=== PATIENT | female | born 1965 | race Caucasian/White ===

== ENCOUNTER 2016-10-02 18:57 | Emergency (ER) | payer OTHER ==
--- NOTE | 2016-10-02 22:33 | DIAGNOSTIC IMAGING REPORT ---
PROCEDURE: CT HEAD WITHOUT CONTRAST INDICATION: Fall 3 weeks ago with continued headache, initial encounter TECHNIQUE: Noncontrast axial images with sagittal and coronal reformations. COMPARISON: None. FINDINGS: Sulci, ventricular system, and brain parenchyma are normal. No evidence of acute intracranial process. Visualized mastoids and sinuses are clear. IMPRESSION: 1. Negative non-enhanced head CT. 2. Findings called to the ER at 10:32 p.m., [place] Standard Time
--- NOTE | 2016-10-02 23:41 | ED CLINICAL REPORT ---
Clinical Report - Physicians/Mid Levels [facility] [address] [address] 10/02/2016 19:00 Patient: HUDSON LYNCH Time Seen: 21:21. Arrived- By private vehicle. Historian- patient. HISTORY OF PRESENT ILLNESS Is still present. Chief Complaint: HEADACHE. This started about 3 weeks ago. Onset during Pt fell off a stool onto hardwood floor 3 wks ago. She did not lose consciousness, but felt dazed, and states she's had a headache and felt "off" since. Pt feels that the past couple of days are worse, and thinks she may be "coming down with a bug.". It is described as "pain" and pressure. Located in the frontal and occipital region and has had right posterior and lateral neck pain. At its maximum, severity described as moderate. When seen in the E.D., severity described as moderate. Modifying factors: worsened by stooping, straining and tension; relieved by nothing. No preceding symptoms, blurred vision, photophobia, associated nausea or numbness. No weakness or vomiting. Similar symptoms previously: None. Recent medical care: Not recently seen/assessed. REVIEW OF SYSTEMS No fever, muscle aches, sinus pressure, ear pain or sore throat. No chest pain, difficulty breathing, cough, abdominal pain or diarrhea. No pain with urination, skin rash, enlarged lymph nodes or back pain. The patient sustained a head injury (3 weeks ago). All systems otherwise negative, except as recorded above. PAST HISTORY Problems: Cervical Radiculopathy. De Quervain's Disease. Endometriosis. Dental Caries. Immunizations. LNMP - Last Normal Menstrual Period. Additional Surgeries: . Medications: Gabapentin Oral 300 mg, 3x a day. Ibuprofen Oral 800 mg, 3x a day. Allergies: Amoxicillin. Penicillins. SOCIAL HISTORY Smoker- current status unknown. History of drug use: marijuana. No alcohol use. ADDITIONAL NOTES The nursing notes have been reviewed. PHYSICAL EXAM Vital Signs: 10/02/2016 20:24 BP: 144/80. HR: 71. RR: 20. O2 saturation: 100%. Have been reviewed. Appearance: Alert. No acute distress. (Pt appears mildly uncomfortable.). Eyes: Pupils equal, round and reactive to light. Eyes normal inspection. ENT: Nose normal. Neck: Neck supple. ( PT has tenderness over the R trapezius distribution.). CVS: Normal heart rate and rhythm. Heart sounds normal. Pulses normal. Respiratory: No respiratory distress. Breath sounds normal. Abdomen: Soft and nontender. Back: Normal inspection. No CVA tenderness. Skin: Skin warm and dry. Normal skin color. No rash. Normal skin turgor. Extremities: Extremities exhibit normal ROM. Neuro: Oriented X 3. Alert. Mood/affect normal. Speech normal. Cranial nerves normal (as tested). No cerebellar findings. No motor deficit. No sensory deficit. LABS, X-RAYS, AND EKG CT Head: Normal study. No acute changes. No bony abnormalities, no hemorrhage, no intracranial mass, no midline shift and no hydrocephalus. No atrophy. Head CT performed without contrast. The study was independently viewed by me, interpreted by the radiologist and contemporaneously by me and discussed with the radiologist. Prior studies were not available for comparison. Laboratory Tests: UA-Culture if indicated: (LISANDRA: 10/02/2016 22:37) ( MsgRcvd 10/02/2016 22:50) Final results Test Result Flag Units (Reference) URINE COLOR YELLOW URINE APPEARANCE CLEAR URINE GLUCOSE NEGATIVE (NEGATIVE) URINE BILIRUBIN NEGATIVE (NEGATIVE) URINE KETONE NEGATIVE (NEGATIVE) URINE SPECIFIC GRAVITY <= 1.005 L (1.010-1.030) URINE PH 6.0 (5.0-8.0) URINE PROTEIN NEGATIVE (NEGATIVE) URINE UROBILINOGEN 0.2 EU/dL (0.2-1.0) URINE NITRITE NEGATIVE (NEGATIVE) URINE BLOOD NEGATIVE (NEGATIVE) URINE LEUK ESTERASE NEGATIVE (NEGATIVE) URINE RBC 0-1 rbc/hpf (0-1) URINE WBC 0-1 wbc/hpf (0-1) URINE EPITHELIAL CELLS 0-1 EPI/hpf (0-5) URINE BACTERIA NONE SEEN (NONE SEEN) URINE COMMENT CULT NOT INDICATED URINE CULTURES ARE SET-UP BASED ON THE FOLLOWING CRITERIA:POSITIVE NITRITEPOSITIVE LEUKOCYTE ESTERASEGREATER THAN 10 WHITE BLOOD CELLSMODERATE (2+) OR GREATER BACTERIA CBC w Diff: (LISANDRA: 10/02/2016 22:37) ( MsgRcvd 10/02/2016 22:47) Final results Test Result Flag Units (Reference) WHITE BLOOD COUNT 8.1 K/uL (4.5-11.5) RED BLOOD COUNT 4.58 M/uL (4.00-5.20) HEMOGLOBIN 13.8 gm/dL (12.0-16.0) HEMATOCRIT 42.5 % (36.0-46.0) MEAN CELL VOLUME 93 fL (80-100) MEAN CORPUSCULAR HGB 30 pg (26-34) MEAN CORPUSCULAR HGB CONC 33 g/dL (31-37) RED CELL DISTRIBUTION WIDTH 13.0 % (11.6-14.8) PLATELET COUNT 236 K/uL (150-400) LYMPH % 42.9 H % (25-40) MONO % 7.4 % (3-14) GRANULOCYTE % 49.7 L (53-90) CMP: (LISANDRA: 10/02/2016 22:37) ( MsgRcvd 10/02/2016 23:02) Final results Test Result Flag Units (Reference) GLUCOSE 102 mg/dL (70-110) BUN 15 mg/dL (7-18) CREATININE 0.7 mg/dL (0.6-1.3) Estimated GFR >60 mL/min Estimated GFR- >60 mL/min Note: Persistent reduction over 3 months in eGFR<60 mL/min/1.73 m2 defines CKD. Patients with eGFR values>=60 mL/min/1.73 m2 may also have CKD if evidence ofpersistent proteinuria. Additional information may be foundat www.[email or web address].org. SODIUM 140 mmol/L (136-145) POTASSIUM 3.8 mmol/L (3.5-5.1) CHLORIDE 105 mmol/L (98-107) CARBON DIOXIDE 29 mmol/L (21-32) CALCIUM 8.7 mg/dL (8.5-10.1) TOTAL PROTEIN 6.8 g/dL (6.4-8.2) ALBUMIN 3.8 g/dL (3.3-5.0) BILIRUBIN, TOTAL 0.3 mg/dL (0.0-1.0) ALKALINE PHOSPHATASE 49 U/L (46-116) AST (SGOT) 21 U/L (15-37) ALT (SGPT) 26 U/L (12-78) . Pulse Oximetry: 10/02/2016 20:24 O2 saturation: 100%. (FIO2 - room air). Interpretation: normal. PROGRESS AND PROCEDURES Course of Care: PT was worked up for her sx, and treated symptomatically with IV Toradol, with improvement. Work-up revealed no emergent cause of sx. We have discussed the possibility of post-concussive syndrome, vs the possibility that pt is in the early stage of illness with one of the many viruses that are going around right now. I have encouraged her to f/u with her PCP for further concerns. Patient and family counseled in person regarding the patient's stable condition, test results, diagnosis and need for follow-up. Concerns were addressed. Old medical records reviewed. Disposition: Discharged. Condition: stable. CLINICAL IMPRESSION Concussion. No loss of consciousness. Possible acute viral syndrome INSTRUCTIONS (Your head CT was negative. Your labs and urinalysis look good. You likely sustained a concussion at the time of your head injury, which can cause symptoms for up to some weeks after the injury. On top of this, you may be fighting off one of the many viruses which are going around at this time.). Warnings: SEDATIVE MEDICATION: You were given sedative medication during your visit. Do not drive or operate dangerous machinery for 6 hours. GENERAL WARNINGS: Return or contact your physician immediately if your condition worsens or changes unexpectedly, if not improving as expected, or if other problems arise. Your Current Medications: CONTINUE TAKING THE FOLLOWING MEDICATIONS: Gabapentin Oral : 300 mg 3x a day. Ibuprofen Oral : 800 mg 3x a day. Prescription Medications: Hydrocodone/APAP take 1 orally every 8 hours as needed for pain. Dispense five (5). No refill. Zofran (orally disintegrating tablets) 4 mg: take 1-2 orally every 6 hours as needed for nausea. Dispense ten (10). No refill. Substitution is permissible. Follow-up: Follow up with your doctor in seven days as needed. Understanding of the discharge instructions verbalized by patient. (Electronically signed by Karen Kaba MD 10/07/2016 21:08)
--- NOTE | 2016-10-02 23:41 | ED ORDER SUMMARY ---
..... Patient: HUDSON LYNCH OrderSheet [facility] VisitID: [id number] [place] [address] 51y, F Registration Date/Time: 10/02/2016 ORDER SHEET Weight: 56.6 kg (stated) Allergies: Amoxicillin, Penicillins GENERAL ORDERS: CT Head wo Cont Urgent (22:15 10/02/2016 Edgar WARNER) (Ack 22:20 CHagerty ER French Pastry Cook) (22:29 CHagerty ER French Pastry Cook) CBC w Diff Urgent (22:17 10/02/2016 Edgar WARNER) (Ack 22:20 CHagerty ER French Pastry Cook) (22:39 JQuivey R.N.) CMP Urgent (22:17 10/02/2016 Edgar WARNER) (Ack 22:20 CHagerty ER French Pastry Cook) (22:39 JQuivey R.N.) UA-Culture if indicated Urgent (22:17 10/02/2016 Edgar WARNER) (Ack 22:20 CHagerty ER French Pastry Cook) (22:39 JQuivey R.N.) MEDICATION ORDERS: IV FLUIDS: IV Saline Lock (22:17 10/02/2016 Edgar WARNER) (Ack 22:27 JQuivey R.N.) (22:40 JQuivey R.N.) Toradol IV 30 mg (NOW) (22:17 10/02/2016 Edgar WARNER) (Ack 22:27 JQuivey R.N.) (22:41 JQuivey R.N.) ORDER SHEET NOTES: [Electronically signed by Roque Salamanca R.N. (00:10/03/2016)] [Electronically signed by Karen Kaba MD (21:08 10/07/2016)] [Electronically locked/signed by Roque Salamanca R.N. (00:10/03/2016)]
--- NOTE | 2016-10-02 23:41 | ED NURSING NOTES ---
Clinical Report - Nurses [facility] [address] [place] [address] 10/02/2016 19:00 Patient: HUDSON LYNCH TRIAGE Triage time 20:25. Acuity: LEVEL 3. Chief Complaint: INJURY TO HEAD and (Pt is). --20:27 Paul Castillo R.N. 20:24 10/02/16. BP: 144/80. HR: 71. RR: 20. O2 saturation: 100%. --20:27 Paul Castillo R.N. Weight: 56.6 kg stated. Height/Length: 66 inches Per Patient. BMI: 20.1. --20:28 Palu Castillo R.N. Medications Gabapentin Oral 300 mg, 3x a day. Ibuprofen Oral 800 mg, 3x a day. --20:26 Paul Castillo R.N. Medication/allergy information source: the patient. --20:27 Paul Castillo R.N. Allergies Amoxicillin. Penicillins. --20:26 Paul Castillo R.N. History Arrived by private vehicle. Historian: patient. Accompanied by family. This occurred (3 weeks ago). ( Pt came in for a headache, neck pain, blood in left eye. Headache for the past 3 weeks. Pt stated she is not feeling like herself, but not able to explain what she means.). She has had a headache and neck pain. 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 PAST MEDICAL HX: Immunizations: up-to-date. SOCIAL HX: Current every day heavy tobacco smoker (cigarette)- less than 1 pack per day. History of occasional drug use: marijuana. No alcohol use. --20:27 Paul Castillo R.N. PROBLEMS: Neck Injury. Cervical Radiculopathy. De Quervain's Disease. Upper Extremity Pain. Muscle Spasm. Neck Pain. UTI - Urinary Tract Infection. Endometriosis. Dental Abscess. Dental Pain. Abscess. Dental Caries. Immunizations. LNMP - Last Normal Menstrual Period. --20:27 Paul Castillo R.N. Interventions ID band on patient. To treatment room. --20:27 Paul Castillo R.N. PHYSICAL ASSESSMENT GENERAL / NEURO / PSYCH: Alert. Oriented X 4. Appears anxious. HEENT: Head non-tender. Photophobia present (both). Pupils equal, round and reactive to light. EOM intact. ( redness in the left eye. pt stated today her eye sight has decreased.). Ear within normal limits. Mouth within normal limits upon inspection. Voice within normal limits. No swelling of head. No nasal injury noted. No dental injury noted. Mucous membranes are pink. RESPIRATORY: Respirations not labored. CVS: Capillary refill less than 2 seconds. BACK: No neck or back tenderness. ROM normal to the neck and back. SKIN: Skin is warm and dry. --20:29 Paul Castillo R.N. NURSING PROGRESS NOTES Patient gowned. Two patient identifiers checked. Call light placed in reach. Side rails up x 1. Bed placed in lowest position. Brakes of bed on. --20:29 Paul Castillo R.N. 22:35 10/02/2016 Site #1 started via IV in the left forearm with an 20g angiocath, with aseptic technique and good blood return; one attempt. Blood drawn: rainbow set. Labeled in the presence of the patient and sent to the lab. Saline lock flushed with 10 mL saline. --22:40 Roque Salamanca R.N. 22:36 10/02/2016 Toradol IVP 30 mg given over 2 minute(s) via site #1. Allergies verified and confirmed 5 rights. IV patency established. IV site checked: no pain, redness, or swelling. IV flushed thoroughly pre- and post-medication administration. --22:41 Roque Salamanca R.N. 22:30. Patient ID band checked for patient name and birthdate: patient confirmed. Clean catch urine collected with return of yellow-colored clear urine; sample sent to lab for urinalysis. Specimen labeled in the presence of the patient. --22:42 Roque Salamanca R.N. 23:59. The patient is calm and resting quietly. GENERAL / NEURO / PSYCH: Alert. Oriented X 4. RESPIRATORY: No respiratory distress. SKIN: Skin is warm and dry. --00:02 Roque Salamanca R.N. DISPOSITION / DISCHARGE 23:55 10/02/2016 Site #1 removed upon discharge. Catheter intact. Bandage applied. --00:01 Roque Salamanca R.N. Departure time: 00:01. Condition at departure: stable. No learning barriers present. Discharge instructions provided and reviewed with the patient. Reviewed medication(s) side effects, precautions, dosing and course information. Prescription(s) given to the patient. Patient verbalized understanding. Written instructions provided in French. The patient was discharged home and accompanied by family. She left the Emergency Department ambulatory and via private vehicle. Family member driving. FALL RISK ASSESSMENT: Fall risk assessment completed. No fall risk identified. --00:03 Roque Salamanca R.N. 23:55 10/02/16. BP: 121/66. HR: 93. RR: 16. O2 saturation: 98%. Pain level now: 01/03. --00:03 Roque Salamanca R.N. Locked/Released at 10/03/2016 0:15 by Roque Salamanca R.N.
--- NOTE | 2016-10-02 23:41 | ED NURSING NOTES ---
Clinical Report - Nurses [facility] [address] [place] [address] 10/02/2016 19:00 Patient: HUDSON LYNCH TRIAGE Triage time 20:25. Acuity: LEVEL 3. Chief Complaint: INJURY TO HEAD and (Pt is). --20:27 Paul Castillo R.N. 20:24 10/02/16. BP: 144/80. HR: 71. RR: 20. O2 saturation: 100%. --20:27 Paul Castillo R.N. Weight: 56.6 kg stated. Height/Length: 66 inches Per Patient. BMI: 20.1. --20:28 Paul Castillo R.N. Medications Gabapentin Oral 300 mg, 3x a day. Ibuprofen Oral 800 mg, 3x a day. --20:26 Paul Castillo R.N. Medication/allergy information source: the patient. --20:27 Paul Castillo R.N. Allergies Amoxicillin. Penicillins. --20:26 Paul Castillo R.N. History Arrived by private vehicle. Historian: patient. Accompanied by family. This occurred (3 weeks ago). ( Pt came in for a headache, neck pain, blood in left eye. Headache for the past 3 weeks. Pt stated she is not feeling like herself, but not able to explain what she means.). She has had a headache and neck pain. 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 PAST MEDICAL HX: Immunizations: up-to-date. SOCIAL HX: Current every day heavy tobacco smoker (cigarette)- less than 1 pack per day. History of occasional drug use: marijuana. No alcohol use. --20:27 Paul Castillo R.N. PROBLEMS: Neck Injury. Cervical Radiculopathy. De Quervain's Disease. Upper Extremity Pain. Muscle Spasm. Neck Pain. UTI - Urinary Tract Infection. Endometriosis. Dental Abscess. Dental Pain. Abscess. Dental Caries. Immunizations. LNMP - Last Normal Menstrual Period. --20:27 Paul Castillo R.N. Interventions ID band on patient. To treatment room. --20:27 Paul Castillo R.N. PHYSICAL ASSESSMENT GENERAL / NEURO / PSYCH: Alert. Oriented X 4. Appears anxious. HEENT: Head non-tender. Photophobia present (both). Pupils equal, round and reactive to light. EOM intact. ( redness in the left eye. pt stated today her eye sight has decreased.). Ear within normal limits. Mouth within normal limits upon inspection. Voice within normal limits. No swelling of head. No nasal injury noted. No dental injury noted. Mucous membranes are pink. RESPIRATORY: Respirations not labored. CVS: Capillary refill less than 2 seconds. BACK: No neck or back tenderness. ROM normal to the neck and back. SKIN: Skin is warm and dry. --20:29 Paul Castillo R.N. NURSING PROGRESS NOTES Patient gowned. Two patient identifiers checked. Call light placed in reach. Side rails up x 1. Bed placed in lowest position. Brakes of bed on. --20:29 Paul Castillo R.N. 22:35 10/02/2016 Site #1 started via IV in the left forearm with an 20g angiocath, with aseptic technique and good blood return; one attempt. Blood drawn: rainbow set. Labeled in the presence of the patient and sent to the lab. Saline lock flushed with 10 mL saline. --22:40 Roque Salamanca R.N. 22:36 10/02/2016 Toradol IVP 30 mg given over 2 minute(s) via site #1. Allergies verified and confirmed 5 rights. IV patency established. IV site checked: no pain, redness, or swelling. IV flushed thoroughly pre- and post-medication administration. --22:41 Roque Salamanca R.N. 22:30. Patient ID band checked for patient name and birthdate: patient confirmed. Clean catch urine collected with return of yellow-colored clear urine; sample sent to lab for urinalysis. Specimen labeled in the presence of the patient. --22:42 Roque Salamanca R.N. 23:59. The patient is calm and resting quietly. GENERAL / NEURO / PSYCH: Alert. Oriented X 4. RESPIRATORY: No respiratory distress. SKIN: Skin is warm and dry. --00:02 Roque Salamanca R.N. DISPOSITION / DISCHARGE 23:55 10/02/2016 Site #1 removed upon discharge. Catheter intact. Bandage applied. --00:01 Roque Salamanca R.N. Departure time: 00:01. Condition at departure: stable. No learning barriers present. Discharge instructions provided and reviewed with the patient. Reviewed medication(s) side effects, precautions, dosing and course information. Prescription(s) given to the patient. Patient verbalized understanding. Written instructions provided in Persian. The patient was discharged home and accompanied by family. She left the Emergency Department ambulatory and via private vehicle. Family member driving. FALL RISK ASSESSMENT: Fall risk assessment completed. No fall risk identified. --00:03 Roque Salamanca R.N. 23:55 10/02/16. BP: 121/66. HR: 93. RR: 16. O2 saturation: 98%. Pain level now: 01/03. --00:03 Roque Salamanca R.N. Locked/Released at 10/03/2016 0:15 by Roque Salamanca R.N.
--- NOTE | 2016-10-02 23:41 | ED ORDER SUMMARY ---
..... Patient: HUDSON LYNCH OrderSheet [facility] VisitID: [id number] [place] [address] 51y, F Registration Date/Time: 10/02/2016 ORDER SHEET Weight: 56.6 kg (stated) Allergies: Amoxicillin, Penicillins GENERAL ORDERS: CT Head wo Cont Urgent (22:15 10/02/2016 Edgar WARNER) (Ack 22:20 CHagerty ER Principal Secretary) (22:29 CHagerty ER Principal Secretary) CBC w Diff Urgent (22:17 10/02/2016 Edgar WARNER) (Ack 22:20 CHagerty ER Principal Secretary) (22:39 JQuivey R.N.) CMP Urgent (22:17 10/02/2016 Edgar WARNER) (Ack 22:20 CHagerty ER Principal Secretary) (22:39 JQuivey R.N.) UA-Culture if indicated Urgent (22:17 10/02/2016 Edgar WARNER) (Ack 22:20 CHagerty ER Principal Secretary) (22:39 JQuivey R.N.) MEDICATION ORDERS: IV FLUIDS: IV Saline Lock (22:17 10/02/2016 Edgar WARNER) (Ack 22:27 JQuivey R.N.) (22:40 JQuivey R.N.) Toradol IV 30 mg (NOW) (22:17 10/02/2016 Edgar WARNER) (Ack 22:27 JQuivey R.N.) (22:41 JQuivey R.N.) ORDER SHEET NOTES: [Electronically signed by Roque Salamanca R.N. (00:10/03/2016)] [Electronically signed by Karen Kaba MD (21:08 10/07/2016)] [Electronically locked/signed by Roque Salamanca R.N. (00:10/03/2016)]
--- NOTE | 2016-10-07 21:08 | ED MED RECONCILIATION SUMMARY ---
Patient: HUDSON LYNCH Medication Reconciliation Report [facility] VisitID: [id number] [address] [place] [address] 51y, F Registration Date/Time: 10/02/2016 Weight: 56.6 kg Height/Length: 66 in. BMI: 20.1 ALLERGIES: Amoxicillin, Penicillins The patient's Home Medications are listed below: CONTINUE TAKING THE FOLLOWING MEDICATIONS: Gabapentin Oral 300 mg, 3x a day Ibuprofen Oral 800 mg, 3x a day The source(s) of the original Home Medication information: patient The following Medications were given to the patient in the Emergency Department: Toradol [IVP] IVP 30 mg, administered: 10/02/2016 10:36:00 PM The following Medications were prescribed to the patient: Hydrocodone/APAP take 1 orally every 8 hours as needed for pain. Dispense five (5). No refill. -- Karen Kaba MD Zofran (orally disintegrating tablets) 4 mg: take 1-2 orally every 6 hours as needed for nausea. Dispense ten (10). No refill. Substitution is permissible. -- Karen Kaba MD
--- NOTE | 2016-10-07 21:08 | ED MAR SUMMARY ---
..... Medication Administration Record [facility] [address] [place] [place] [address] Patient: HUDSON LYNCH Visit ID: [id number] 51y, F Weight: 56.6 kg Height/Length: 66 in BMI: 20.1 ALLERGIES: Amoxicillin, Penicillins Given 22:36 10/02/2016 Roque Salamanca R.N. Medication Administered: TORADOL [IVP], Dose: 30 mg IVP over 2 minute(s), Site: #1 left forearm. Medication Ordered: Toradol IV 30 mg (NOW).
--- NOTE | 2016-10-07 21:08 | ED DISCHARGE INSTRUCTIONS ---
Patient: HUDSON LYNCH General Instructions [facility] VisitID: [id number] [place] [address] 51y, F Registration Date/Time: 10/02/2016 Concussion. No loss of consciousness. INSTRUCTIONS (Your head CT was negative. Your labs and urinalysis look good. You likely sustained a concussion at the time of your head injury, which can cause symptoms for up to some weeks after the injury. On top of this, you may be fighting off one of the many viruses which are going around at this time.). Warnings: SEDATIVE MEDICATION: You were given sedative medication during your visit. Do not drive or operate dangerous machinery for 6 hours. GENERAL WARNINGS: Return or contact your physician immediately if your condition worsens or changes unexpectedly, if not improving as expected, or if other problems arise. Your Current Medications: CONTINUE TAKING THE FOLLOWING MEDICATIONS: Gabapentin Oral : 300 mg 3x a day. Ibuprofen Oral : 800 mg 3x a day. Prescription Medications: Hydrocodone/APAP take 1 orally every 8 hours as needed for pain. Dispense five (5). No refill. Zofran (orally disintegrating tablets) 4 mg: take 1-2 orally every 6 hours as needed for nausea. Dispense ten (10). No refill. Substitution is permissible. Follow-up: Follow up with your doctor in seven days as needed. Understanding of the discharge instructions verbalized by patient. ADDITIONAL INFORMATION Viral Syndrome (Adult) A viral illness may cause a number of symptoms. The symptoms depend on the part of the body that the virus affects. If it settles in the nose, throat, and lungs, it may cause cough, sore throat, congestion, and sometimes headache. If it settles in the stomach and intestinal tract, it may cause vomiting and diarrhea. Sometimes it causes vague symptoms like "aching all over," feeling tired, loss of appetite, or fever. A viral illness usually lasts1 to 2 weeks, but sometimes it lasts longer. In some cases, a more serious infection can look like a viral syndrome in the first few days of the illness. You may need anotherexam and additional teststo know the difference.Watch for the warning signs listed below. Home care Follow these guidelines for taking care of yourself at home: If symptoms are severe, rest at home for the first 2 to 3 days. Stay away from cigarette smoke - both your smoke and the smoke from others. You may useacetaminophen or ibuprofen for fever, muscle aching, and headache, unless another medicine was prescribed for this.If you have chronic liver or kidney disease or ever had a stomach ulcer or GI bleeding, talk with your doctor before using these medicinesNo one who is younger than 18 and ill with a fever should take aspirin. It may cause severe liver damage. Your appetite may be poor, so a light diet is fine. Avoid dehydration by drinking 8 to 12 8-ounce glasses of fluids each day. This may include water; orange juice; lemonade; apple, grape, and cranberry juice; clear fruit drinks; electrolyte replacement and sports drinks; and decaffeinated teas and coffee. If you have been diagnosed with a kidney disease, ask your doctor how much and what types of fluids you should drink to prevent dehydration. If you have kidney disease, drinking too much fluid can cause it build up in the your body and be dangerous to your health. Fgqh-yva-rwxirol remedies won't shorten the length of the illness but may be helpful forcough, sore throat; and nasal and sinus congestion. Don't use decongestants if you have high blood pressure. Follow-up care Follow up with your health care provider if you do not improve over the next week. When to seek medical care Get prompt medical attention if any of these occur: Cough with lots of colored sputum (mucus) or blood in your sputum Chest pain, shortness of breath, wheezing, or difficulty breathing Severe headache; face, neck, or ear pain Severe, constant pain in the lower right side of your belly (abdominal) Continued vomiting (cant keep liquids down) Frequent diarrhea (more than 5 times a day); blood (red or black color) or mucus in diarrhea Feeling weak, dizzy, or like you are going to faint Extreme thirst Fever of 100.4 F (38 C) oral or higher, not better with fever medication Convulsion Concussion (No Wake-Up) A concussion happens when you hit your head with enough force to shake up the brain. This may cause you to lose consciousness be "knocked out" - but not always. Depending on how hard you hit your head, it will take from a few hours up to a few days to get better. Sometimes symptoms may last a few months or longer. This is called post-concussion syndrome. At first, you may have a headache, nausea, vomiting, or dizziness. You may also have problems concentrating or remembering things. This is normal. Symptoms should get better as the hours and days go by. Symptoms that get worse could be a sign of a more serious injury. This might be a bruise or bleeding in the brain. Thats why its important to watch for the warning signs listed below. Home care Follow these tips to help care for yourself at home: During the next day (24 hours) someone must stay with you to check for the signs below. If your face or scalp swells, apply an ice pack for 20 minutes every 1 to 2 hours. Do this until the swelling starts to go down. You can make an ice pack by putting ice cubes in a plastic bag and wrapping the bag in a towel. for 20 minutes every 1-2 hours until the swelling starts to go down. You may use acetaminophen to control pain, unless another pain medicine was prescribed. If you have chronic liver or kidney disease, talk with your doctor before using these medicines. Also talk with your doctor if you ever had a stomach ulcer or GI bleeding. For the next 24 hours: Dont drink alcohol or take sedatives or medicines that make you sleepy. Dont drive or operate machinery. Avoid doing anything strenuous. Dont lift or strain. Dont return to sports or any activity that could cause you to hit your head until all symptoms are gone and you have been cleared by your doctor. A second head injury before fully recovering from the first one can lead to serious brain injury. Follow-up care Follow up with your doctor in 1 week, or as directed. Note: A radiologist will review any X-rays or CT scans that were taken. You will be told of any new findings that may affect your care. When to seek medical care Get prompt medical attention if any of these occur: Repeated vomiting Headache or dizziness that is severe or gets worse Unusual drowsiness, or unable to wake up as usual Confusion or change in behavior or speech, or memory loss Blurred vision Convulsion (seizure) Swelling on the scalp or face that gets worse Redness, warmth, or pus from the swollen area Fluid draining from or bleeding from the nose or ears You have been given the following additional information: Viral Syndrome (Adult) Concussion, No Wake-Up (Electronically signed by Karen Kaba MD 10/07/2016 21:08)
--- NOTE | 2016-10-07 21:08 | ED MAR SUMMARY ---
..... Medication Administration Record [facility] [address] [address] Patient: HUDSON LYNCH Visit ID: [id number] 51y, F Weight: 56.6 kg Height/Length: 66 in BMI: 20.1 ALLERGIES: Amoxicillin, Penicillins Given 22:36 10/02/2016 Roque Salamanca R.N. Medication Administered: TORADOL [IVP], Dose: 30 mg IVP over 2 minute(s), Site: #1 left forearm. Medication Ordered: Toradol IV 30 mg (NOW).
--- NOTE | 2016-10-07 21:08 | ED MED RECONCILIATION SUMMARY ---
Patient: HUDSON LYNCH Medication Reconciliation Report [facility] VisitID: [id number] [address] [place] [address] 51y, F Registration Date/Time: 10/02/2016 Weight: 56.6 kg Height/Length: 66 in. BMI: 20.1 ALLERGIES: Amoxicillin, Penicillins The patient's Home Medications are listed below: CONTINUE TAKING THE FOLLOWING MEDICATIONS: Gabapentin Oral 300 mg, 3x a day Ibuprofen Oral 800 mg, 3x a day The source(s) of the original Home Medication information: patient The following Medications were given to the patient in the Emergency Department: Toradol [IVP] IVP 30 mg, administered: 10/02/2016 10:36:00 PM The following Medications were prescribed to the patient: Hydrocodone/APAP take 1 orally every 8 hours as needed for pain. Dispense five (5). No refill. -- Karen Kaba MD Zofran (orally disintegrating tablets) 4 mg: take 1-2 orally every 6 hours as needed for nausea. Dispense ten (10). No refill. Substitution is permissible. -- Karen Kaba MD
== END 2016-10-03 00:07 | disposition home or self-care (01) ==
LOC: ED SRH 18:57
DX: S06.0X0A Concussion without loss of consciousness, initial encounter (principal); W07.XXXA Fall from chair, initial encounter; Y93.9 Activity, unspecified; Y92.9 Unspecified place or not applicable; Y99.9 Unspecified external cause status; Z79.1 Long term (current) use of non-steroidal anti-inflammatories (NSAID)
CPT/HCPCS: 90004; 90100; 95059

== ENCOUNTER 2016-10-06 21:26 | Emergency (ER) | payer OTHER ==
--- NOTE | 2016-10-06 22:22 | ED NURSING NOTES ---
Clinical Report - Nurses [facility] [address] [place] [address] 10/06/2016 21:26 Patient: HUDSON LYNCH TRIAGE Triage time 21:53 Oct 06 2016. Acuity: LEVEL 4. Chief Complaint: NECK PAIN. Alert. No acute distress. (anxious, rocking in the chair). RADHA COMA SCORE: Radha Coma Scale: 15- eyes open spontaneously (4); best verbal response- oriented x 4 (5); best motor response- obeys commands (6). --22:00 Donita Doll R.N. 21:53 10/06/16. BP: 122/77. HR: 79. RR: 18. O2 saturation: 98%. Temp: 98.2 F. Pain level now 10. --22:00 Donita Doll R.N. Weight: 58.9 kg stated. Height/Length: 66 inches Per Patient. BMI: 21. --21:53 Donita Doll R.N. Medications Gabapentin Oral 300 mg, 3x a day. Ibuprofen Oral 800 mg, 3x a day. --21:57 Donita Doll R.N. Medication/allergy information source: the patient. --22:00 Donita Doll R.N. Allergies Amoxicillin. Penicillins. --21:57 Donita Doll R.N. History Arrived by private vehicle. Historian: patient. Primary physician (Dr. Guthrie). ( Pt states she still has a migraine, was seen here for same c/o not long ago. CT Head done was Negative. Taking Ibuprofen PRN and the Vicodin that was prescribed here. States she's sensitive to light and dizzy.). This is a recurrent problem. 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 PAST MEDICAL HX: Has not received seasonal influenza immunization. SOCIAL HX: Smoker- current status unknown. History of drug use: marijuana. No alcohol use. NUTRITIONAL RISK ASSESSMENT: The nutritional risk assessment revealed no deficiencies. FUNCTIONAL ASSESSMENT: Functional assessment: no impairments noted. LEARNING NEEDS ASSESSMENT: The learning needs assessment revealed no barriers. SKIN INTEGRITY ASSESSMENT: Skin integrity risk assessment completed. No skin integrity risk identified. --22:00 Donita Doll R.N. PROBLEMS: Concussion. Neck Injury. Cervical Radiculopathy. De Quervain's Disease. Upper Extremity Pain. Muscle Spasm. Neck Pain. UTI - Urinary Tract Infection. Endometriosis. Dental Abscess. Dental Pain. Abscess. Dental Caries. Immunizations. LNMP - Last Normal Menstrual Period. --: Donita Doll R.N. Viral Disease [RuleOut]. --:58 Donita Doll R.N. ADDITIONAL SURGERIES: . --:58 Donita Doll R.N. Interventions ID band on patient. To room. --22:00 Donita Doll R.N. PHYSICAL ASSESSMENT 2202. To room via wheelchair. Patient gowned. GENERAL / NEURO / PSYCH: Alert. Oriented X 4. Appears anxious and in distress. RESPIRATORY: Respirations not labored. CVS: Capillary refill less than 2 seconds. GI / : Abdomen soft. ( denies nausea). EXTREMITIES: ROM of extremities within normal limits. --22:14 Siobhan Kenyon R.N. NURSING PROGRESS NOTES 22:06 10/06/16. Patient gowned. Patient identifiers checked. Call light placed in reach (lights dimmed in room). Side rails up. Bed placed in lowest position. --22:06 Siobhan Kenyon R.N. 22:42 10/06/2016 Toradol (Ketorolac Tromethamine) IM 60 mg given. Given in the left ventral gluteus. --22:45 Siobhan Kenyon R.N. 22:43 10/06/2016 Reglan * IM 10mg --22:46 Siobhan Kenyon R.N. 22:44 10/06/2016 Benadryl (DiphenhydrAMINE HCl) IM 50 mg given. Given in the right ventral gluteus. Sedative warning given to the patient and patient's family. --22:45 Siobhan Kenyon R.N. 22:50. ( pt given pain meds and informed that she was being discharged. Pt stated that she wants more evaluation done on her neck. ERNP notified of this- she went into room (after consulting with Dr. hunter) and told pt that CT done 2 days ago would have shown any significant problems. Pt then told [employer]IVIT[employer] FOUL JUDGE that she wanted and MRI and " Need a plate and screws in there for all the grinding that it does" pt was then notified that MRI's aren't ordered thru the ED and she needed to f/u with her PCP for an MRI .). --22:57 Siobhan Kenyon R.N. DISPOSITION / DISCHARGE 22:58. Condition at departure: stable. No learning barriers present. Discharge instructions provided and reviewed with the family. Reviewed medication(s) (fioracet, vicodin). Family verbalized understanding. Written instructions provided in Malay. The patient was discharged home and accompanied by family. She left the Emergency Department ambulatory and via private vehicle. Family member driving. --23:00 Siobhan Kenyon R.N. 22:57 10/06/16. HR: 84. RR: 20. O2 saturation: 100%. Temp: deferred. Pain level now: 07/05. --23:00 Siobhan Kenyon R.N. Locked/Released at 10/06/2016 23:01 by Siobhan Kenyon R.N.
--- NOTE | 2016-10-06 22:22 | ED NURSING NOTES ---
Clinical Report - Nurses [facility] [address] [place] [address] 10/06/2016 21:26 Patient: HUDSON LYNCH TRIAGE Triage time 21:53 Oct 06 2016. Acuity: LEVEL 4. Chief Complaint: NECK PAIN. Alert. No acute distress. (anxious, rocking in the chair). RADHA COMA SCORE: Radha Coma Scale: 15- eyes open spontaneously (4); best verbal response- oriented x 4 (5); best motor response- obeys commands (6). --22:00 Donita Doll R.N. 21:53 10/06/16. BP: 122/77. HR: 79. RR: 18. O2 saturation: 98%. Temp: 98.2 F. Pain level now 10. --22:00 Donita Doll R.N. Weight: 58.9 kg stated. Height/Length: 66 inches Per Patient. BMI: 21. --21:53 Donita Doll R.N. Medications Gabapentin Oral 300 mg, 3x a day. Ibuprofen Oral 800 mg, 3x a day. --21:57 Donita Doll R.N. Medication/allergy information source: the patient. --22:00 Donita Doll R.N. Allergies Amoxicillin. Penicillins. --21:57 Donita Doll R.N. History Arrived by private vehicle. Historian: patient. Primary physician (Dr. Guthrie). ( Pt states she still has a migraine, was seen here for same c/o not long ago. CT Head done was Negative. Taking Ibuprofen PRN and the Vicodin that was prescribed here. States she's sensitive to light and dizzy.). This is a recurrent problem. 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 PAST MEDICAL HX: Has not received seasonal influenza immunization. SOCIAL HX: Smoker- current status unknown. History of drug use: marijuana. No alcohol use. NUTRITIONAL RISK ASSESSMENT: The nutritional risk assessment revealed no deficiencies. FUNCTIONAL ASSESSMENT: Functional assessment: no impairments noted. LEARNING NEEDS ASSESSMENT: The learning needs assessment revealed no barriers. SKIN INTEGRITY ASSESSMENT: Skin integrity risk assessment completed. No skin integrity risk identified. --22:00 Donita Doll R.N. PROBLEMS: Concussion. Neck Injury. Cervical Radiculopathy. De Quervain's Disease. Upper Extremity Pain. Muscle Spasm. Neck Pain. UTI - Urinary Tract Infection. Endometriosis. Dental Abscess. Dental Pain. Abscess. Dental Caries. Immunizations. LNMP - Last Normal Menstrual Period. --: Dnoita Doll R.N. Viral Disease [RuleOut]. --:58 Donita Doll R.N. ADDITIONAL SURGERIES: . --:58 Donita Doll R.N. Interventions ID band on patient. To room. --22:00 Donita Doll R.N. PHYSICAL ASSESSMENT 2202. To room via wheelchair. Patient gowned. GENERAL / NEURO / PSYCH: Alert. Oriented X 4. Appears anxious and in distress. RESPIRATORY: Respirations not labored. CVS: Capillary refill less than 2 seconds. GI / : Abdomen soft. ( denies nausea). EXTREMITIES: ROM of extremities within normal limits. --22:14 Siobhan Kenyon R.N. NURSING PROGRESS NOTES 22:06 10/06/16. Patient gowned. Patient identifiers checked. Call light placed in reach (lights dimmed in room). Side rails up. Bed placed in lowest position. --22:06 Siobhan Kenyon R.N. 22:42 10/06/2016 Toradol (Ketorolac Tromethamine) IM 60 mg given. Given in the left ventral gluteus. --22:45 Siobhan Kenyon R.N. 22:43 10/06/2016 Reglan * IM 10mg --22:46 Siobhan Kenyon R.N. 22:44 10/06/2016 Benadryl (DiphenhydrAMINE HCl) IM 50 mg given. Given in the right ventral gluteus. Sedative warning given to the patient and patient's family. --22:45 Siobhan Kenyon R.N. 22:50. ( pt given pain meds and informed that she was being discharged. Pt stated that she wants more evaluation done on her neck. ERNP notified of this- she went into room (after consulting with Dr. uhnter) and told pt that CT done 2 days ago would have shown any significant problems. 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 --22:57 Siobhan Kenyon R.N. DISPOSITION / DISCHARGE 22:58. Condition at departure: stable. No learning barriers present. Discharge instructions provided and reviewed with the family. Reviewed medication(s) (fioracet, vicodin). Family verbalized understanding. Written instructions provided in Czech. The patient was discharged home and accompanied by family. She left the Emergency Department ambulatory and via private vehicle. Family member driving. --23:00 Siobhan Kenyon R.N. 22:57 10/06/16. HR: 84. RR: 20. O2 saturation: 100%. Temp: deferred. Pain level now: 07/05. --23:00 Siobhan Kenyon R.N. Locked/Released at 10/06/2016 23:01 by Siobhan Kenyon R.N.
--- NOTE | 2016-10-06 22:22 | ED ORDER SUMMARY ---
..... Patient: HUDSON LYNCH OrderSheet [facility] VisitID: [id number] [address] [place] [place] [address] 51y, F Registration Date/Time: 10/06/2016 ORDER SHEET Weight: 58.9 kg (stated) Allergies: Amoxicillin, Penicillins GENERAL ORDERS: MEDICATION ORDERS: Toradol IM 60 mg (NOW) (22:18 10/06/2016 HBivens A.R.N.P.) (Ack 22:35 DDean R.N.) (22:45 DDean R.N.) Benadryl IM 50 mg (NOW) (22:18 10/06/2016 HBivens A.R.N.P.) (Ack 22:35 DDean R.N.) (22:45 DDean R.N.) - (Reglan 10mg im stat) (22:18 10/06/2016 HBivens A.R.N.P.) (Ack 22:35 DDean R.N.) (22:46 DDean R.N.) IV FLUIDS: ORDER SHEET NOTES: [Electronically signed by Siobhan Kenyon R.N. (23:10/06/2016)] [Electronically signed by Cynthia Can.R.N.P. (14:00 10/08/2016)] [Electronically locked/signed by Siobhan Kenyon R.N. (23:10/06/2016)]
--- NOTE | 2016-10-06 22:22 | ED ORDER SUMMARY ---
..... Patient: HUDSON LYNCH OrderSheet [facility] VisitID: [id number] [address] [place] [address] 51y, F Registration Date/Time: 10/06/2016 ORDER SHEET Weight: 58.9 kg (stated) Allergies: Amoxicillin, Penicillins GENERAL ORDERS: MEDICATION ORDERS: Toradol IM 60 mg (NOW) (22:18 10/06/2016 HBivens A.R.N.P.) (Ack 22:35 DDean R.N.) (22:45 DDean R.N.) Benadryl IM 50 mg (NOW) (22:18 10/06/2016 HBivens A.R.N.P.) (Ack 22:35 DDean R.N.) (22:45 DDean R.N.) - (Reglan 10mg im stat) (22:18 10/06/2016 HBivens A.R.N.P.) (Ack 22:35 DDean R.N.) (22:46 DDean R.N.) IV FLUIDS: ORDER SHEET NOTES: [Electronically signed by Siobhan Kenyon R.N. (23:10/06/2016)] [Electronically signed by Cynthia Can.R.N.P. (14:00 10/08/2016)] [Electronically locked/signed by Siobhan Kenyon R.N. (23:10/06/2016)]
--- NOTE | 2016-10-06 22:22 | ED CLINICAL REPORT ---
Clinical Report - Physicians/Mid Levels [facility] [address] [place] [address] 10/06/2016 21:26 Patient: HUDSON LYNCH Time Seen: 22:08; initial patient contact, initial documentation, patient care assumed. Arrived- By private vehicle. Historian- patient. RETURN VISIT: recently seen in this ED by another ED physician. Seen now for the same problem as before. HISTORY OF PRESENT ILLNESS Is still present. Chief Complaint: HEADACHE. This started about 3 weeks ago or longer. It is described as similar to previous headaches and "pain". Has had posterior neck pain and located in the occipital region. At its maximum, severity described as severe. When seen in the E.D., severity described as severe. Modifying factors: worsened by bright light; relieved by nothing. The patient has had photophobia. No preceding symptoms, blurred vision, associated nausea, numbness or weakness. No vomiting. (took vicoden, no relief). No recent travel. Similar symptoms previously: Chronically, as bad. ( has had neck issues for years, the neck pain is making the headache worse). Recent medical care: The patient was seen recently at this facility in the emergency department. ( txed here 10/02, dx headache, concussion, given rx zofran and hydrocodone, no better, no f/u). REVIEW OF SYSTEMS No fever, sinus pressure or head injury. All systems otherwise negative, except as recorded above. PAST HISTORY See nurses notes. PROBLEMS: Neck Injury. Cervical Radiculopathy. De Quervain's Disease. Upper Extremity Pain. Muscle Spasm. Neck Pain. UTI - Urinary Tract Infection. Endometriosis. Dental Abscess. Dental Pain. Abscess. Dental Caries. Immunizations. LNMP - Last Normal Menstrual Period. --20:27 Paul Castillo R.N. SOCIAL HISTORY Heavy tobacco smoker. Occasional alcohol use. History of occasional drug use: marijuana. No recent travel. Is a local resident. FAMILY HISTORY Negative. ADDITIONAL NOTES The nursing notes have been reviewed with agreement regarding the chief complaint, HPI, ROS, PMH and patient medications and allergies. PHYSICAL EXAM Vital Signs: 10/06/2016 21:53 BP: 122/77. HR: 79. RR: 18. O2 saturation: 98%. Temp: 98.2 F. Have been reviewed as normal and appear to be correct. Appearance: Alert. No acute distress. Eyes: Pupils equal, round and reactive to light. Eyes normal inspection. ENT: Ears normal. Nose normal. Pharynx normal. Neck: Normal inspection. Neck supple. CVS: Normal heart rate and rhythm. Heart sounds normal. Pulses normal. Respiratory: No respiratory distress. Breath sounds normal. Abdomen: Soft and nontender. No organomegaly. Back: Normal inspection. Skin: Skin warm and dry. Normal skin color. No rash. Normal skin turgor. Extremities: Extremities exhibit normal ROM. No lower extremity edema. Neuro: Oriented X 3. Alert. Mood/affect normal. Speech normal. Cranial nerves normal (as tested). No cerebellar findings. No motor deficit. No sensory deficit. PROGRESS AND PROCEDURES Patient counseled in person regarding the patient's stable condition and diagnosis. 22:22. Differential Diagnosis: I considered migraine, cluster headache, subarachnoid hemorrhage, intracranial bleed, vascular malformation, vascular dissection, vasculitis, temporal arteritis, influenza, viral syndrome, analgesic abuse, hypoglycemia and trigeminal neuralgia as a possible cause of headache in this patient. This is a partial list of diagnoses considered. Other possible considerations: substance abuse. Above considerations are based on history and physical exam. Differential diagnosis was discussed with patient. Disposition: Discharged home in good and improved condition (22:22). Condition: good and stable. CLINICAL IMPRESSION Episodic, poorly controlled migraine headache with status migrainosus. Chronic neck pain. No neuro deficit. INSTRUCTIONS (take either Fiorcet or Hydrocodone, but NOT both). Warnings: GENERAL WARNINGS: Return or contact your physician immediately if your condition worsens or changes unexpectedly, if not improving as expected, or if other problems arise. SPECIFICALLY, return if you develop fever, vomiting, numbness, weakness, difficulty thinking, visual disturbances, fainting or extreme fatigue. Prescription Medications: Fioricet: Take 1-2 orally every 4 hours as needed for headache. Dispense twenty (20). No refills. Substitution is permissible. Follow-up: Follow up with your doctor in about three days even if well. Call for an appointment. Summary of care provided to patient. Understanding of the discharge instructions verbalized by patient. (Electronically signed by Cynthia Can A.R.N.P. 10/08/2016 14:00)
--- NOTE | 2016-10-08 14:01 | ED MAR SUMMARY ---
..... Medication Administration Record [facility] [address] [place] [address] Patient: HUDSON LYNCH Visit ID: [id number] 51y, F Weight: 58.9 kg Height/Length: 66 in BMI: 21 ALLERGIES: Amoxicillin, Penicillins Given 22:42 10/06/2016 Siobhan Kenyon R.N. Medication Administered: TORADOL [IM] (KETOROLAC TROMETHAMINE), Dose: 60 mg IM. Medication Ordered: Toradol IM 60 mg (NOW). Given 22:43 10/06/2016 Siobhan Kenyon RR[address] AnnN. Medication Administered: Reglan *, Dose: 10mg * IM. Medication Ordered: - (Reglan 10mg im stat). Given 22:44 10/06/2016 Siobhan Kenyon RR[address] AnnN. Medication Administered: BENADRYL [IM] (DIPHENHYDRAMINE HCL), Dose: 50 mg IM. Medication Ordered: Benadryl IM 50 mg (NOW).
--- NOTE | 2016-10-08 14:01 | ED MED RECONCILIATION SUMMARY ---
Patient: HUDSON LYNCH Medication Reconciliation Report [facility] VisitID: [id number] [address] [place] [address] 51y, F Registration Date/Time: 10/06/2016 Weight: 58.9 kg Height/Length: 66 in. BMI: 21.0 ALLERGIES: Amoxicillin, Penicillins The patient's Home Medications are listed below: THE FOLLOWING MEDICATIONS NEED TO BE RECONCILED: Gabapentin Oral 300 mg, 3x a day Ibuprofen Oral 800 mg, 3x a day The source(s) of the original Home Medication information: patient The following Medications were given to the patient in the Emergency Department: Toradol [IM] IM 60 mg, administered: 10/06/2016 10:42:00 PM Benadryl [IM] IM 50 mg, administered: 10/06/2016 10:44:00 PM Reglan IM 10mg, administered: 10/06/2016 10:43:00 PM The following Medications were prescribed to the patient: Fioricet: Take 1-2 orally every 4 hours as needed for headache. Dispense twenty (20). No refills. Substitution is permissible. -- Cynthia Can A.R.N.P.
--- NOTE | 2016-10-08 14:01 | ED DISCHARGE INSTRUCTIONS ---
Patient: HUDSON LYNCH General Instructions [facility] VisitID: [id number] [place] [address] 51y, F Registration Date/Time: 10/06/2016 Episodic, poorly controlled migraine headache with status migrainosus. Chronic neck pain. No neuro deficit. INSTRUCTIONS (take either Fiorcet or Hydrocodone, but NOT both). Warnings: GENERAL WARNINGS: Return or contact your physician immediately if your condition worsens or changes unexpectedly, if not improving as expected, or if other problems arise. SPECIFICALLY, return if you develop fever, vomiting, numbness, weakness, difficulty thinking, visual disturbances, fainting or extreme fatigue. Prescription Medications: Fioricet: Take 1-2 orally every 4 hours as needed for headache. Dispense twenty (20). No refills. Substitution is permissible. Follow-up: Follow up with your doctor in about three days even if well. Call for an appointment. Summary of care provided to patient. Understanding of the discharge instructions verbalized by patient. ADDITIONAL INFORMATION Headache [Unspecified] The cause of your headache today is not clear, but it does not appear to be the sign of any serious illness. Under stress, some people tense the muscles of their shoulder, neck and scalp without knowing it. If this condition lasts long enough, a TENSION HEADACHE can occur. A MIGRAINE HEADACHE is caused by changes in blood flow to the brain. A migraine attack may be triggered by emotional stress, hormone changes during the menstrual cycle, oral contraceptives, alcohol use, certain foods containing tyramine, eye strain, weather changes, missing meals, lack of sleep or oversleeping. Other causes of headache include a viral illness with high fever, head injury with concussion, sinus, ear or throat infection, dental pain and TMJ (jaw joint) pain. More serious but less common causes of headache include stroke, brain hemorrhage, brain tumor, meningitis and encephalitis. Home Care: If you were given pain medicine for this headache, do not drive yourself home. Arrange for a ride, instead. When you get home, try to sleep. You should feel much better when you wake up. Apply heat to the back of your neck to relieve neck muscle spasm. Migraine headaches may respond best to an ice pack on the forehead or at the base of the skull. If you are having nausea or vomiting, follow a light diet until your headache is relieved. If you have a migraine type headache, use sunglasses when in the daylight or around bright indoor lighting until symptoms improve. Bright glaring light can worsen this kind of headache. Follow Up with your doctor if the headache is not better within the next 24 hours. If you have frequent headaches you should discuss a treatment plan with your primary care doctor. By being aware of the earliest signs of headache, and starting treatment right away, you may be able to stop the pain yourself. Get Prompt Medical Attention if any of the following occur: Worsening of your head pain or no improvement within 24 hours Repeated vomiting (unable to keep liquids down) Fever of 100.4F (38C) or higher, or as directed by your healthcare provider Stiff neck Extreme drowsiness, confusion or fainting Dizziness, vertigo (dizziness with spinning sensation) Weakness of an arm or leg or one side of the face Difficulty with speech or vision Neck Pain [No Trauma] There are several possible causes of neck pain without injury: You can get a minor ligament sprain or muscle strain from a sudden minor neck movement. Sleeping with your neck in an awkward position can also cause this. Some persons respond to emotional stress by tensing the muscles of their neck, shoulders and upper back. Chronic spasm in these muscles can cause neck pain and sometimes headaches. Gradualwear and tearof the joints in the spine can cause degenerative arthritis.This can be a source of occasional or chronic neck pain. With aging or repeated small injuries to the neck, the spinal disks (the cushions between each spinal bone) may bulge and put pressure on a nearby spinal nerve. This causes tingling, pain or numbness spreading from the neck to the shoulder, arm or hand on one side. Acute neck pain usually gets better in one to two weeks. Neck pain related to disk disease, arthritis in the spinal joints or spinal stenosis (narrowing of the spinal canal) can become chronic and last for months or years. Unless you had a forceful physical injury (for example, a car accident or fall), X-rays are usually not ordered for the initial evaluation of neck pain. If pain continues and does not respond to medical treatment, x-rays and other tests may be performed at a later time. Home Care: Rest and relax the muscles. Use a comfortable pillow that supports the head and keeps the spine in a neutral position. The position of the head should not be tilted forward or backward. A rolled up towel may help for a custom fit. Some persons find relief with heat (hot shower, hot bath or heating pad) and massage, while others prefer cold packs (crushed or cubed ice in a plastic bag, wrapped in a towel) . Try both and use the method that feels best for 20 minutes several times a day. You may use acetaminophen (Tylenol) or ibuprofen (Motrin, Advil) to control pain, unless another medicine was prescribed. [ NOTE : If you have chronic liver or kidney disease or ever had a stomach ulcer or GI bleeding, talk with your doctor before using these medicines.] Follow Up with your physician or this facility if your symptoms do not show signs of improvement after one week. Physical therapy or further tests may be needed. [NOTE: A radiologist will review any X-rays or CT scans that were taken. We will notify you of any new findings that may affect your care.] Get Prompt Medical Attention if any of the following occur: Pain becomes worse or spreads into one or both arms Weakness or numbness in one or both arms Increasing headache Neck swelling, difficulty or painful swallowing Fever of 100.4F (38C) or higher, or as directed by your healthcare provider Butalbital, Acetaminophen, Caffeine Oral tablet What is this medicine? ACETAMINOPHEN; BUTALBITAL; CAFFEINE (a set a OBI farrah fen; byoo JAE bi jae; KAF een) is a pain reliever. It is used to treat tension headaches. How should I use this medicine? Take this medicine by mouth with a full glass of water. Follow the directions on the prescription label. If the medicine upsets your stomach, take the medicine with food or milk. Do not take more than you are told to take. Talk to your calculus professor regarding the use of this medicine in children. Special care may be needed. What side effects may I notice from receiving this medicine? Side effects that you should report to your doctor or health director of patient care as soon as possible: allergic reactions like skin rash, itching or hives, swelling of the face, lips, or tongue breathing problems confusion feeling faint or lightheaded, falls redness, blistering, peeling or loosening of the skin, including inside the mouth seizure stomach pain yellowing of the eyes or skin Side effects that usually do not require medical attention (report to your doctor or health director of patient care if they continue or are bothersome): constipation nausea, vomiting What may interact with this medicine? alcohol or medicines that contain alcohol antidepressants, especially MAOIs like isocarboxazid, phenelzine, tranylcypromine, and selegiline antihistamines benzodiazepines carbamazepine isoniazid medicines for pain like pentazocine, buprenorphine, butorphanol, nalbuphine, tramadol, and propoxyphene muscle relaxants naltrexone phenobarbital, phenytoin, and fosphenytoin phenothiazines like perphenazine, thioridazine, chlorpromazine, mesoridazine, fluphenazine, prochlorperazine, promazine, and trifluoperazine voriconazole What if I miss a dose? If you miss a dose, take it as soon as you can. If it is almost time for your next dose, take only that dose. Do not take double or extra doses. Where should I keep my medicine? Keep out of the reach of children. This medicine can be abused. Keep your medicine in a safe place to protect it from theft. Do not share this medicine with anyone. Selling or giving away this medicine is dangerous and against the law. Store at room temperature between 15 and 30 degrees C (59 and 86 degrees F). Keep container tightly closed. Protect from light. Throw away any unused medicine after the expiration date. What should I tell my health care provider before I take this medicine? They need to know if you have any of these conditions: drink more than 3 alcohol-containing drinks per day drug abuse or addiction heart or circulation problems kidney disease or problems going to the bathroom liver disease lung disease, asthma, or breathing problems porphyria an unusual or allergic reaction to acetaminophen, butalbital or other barbiturates, caffeine, other medicines, foods, dyes, or preservatives or trying to get breast-feeding What should I watch for while using this medicine? Tell your doctor or health director of patient care if your pain does not go away, if it gets worse, or if you have new or a different type of pain. You may develop tolerance to the medicine. Tolerance means that you will need a higher dose of the medicine for pain relief. Tolerance is normal and is expected if you take the medicine for a long time. Do not suddenly stop taking your medicine because you may develop a severe reaction. Your body becomes used to the medicine. This does NOT mean you are addicted. Addiction is a behavior related to getting and using a drug for a non-medical reason. If you have pain, you have a medical reason to take pain medicine. Your doctor will tell you how much medicine to take. If your doctor wants you to stop the medicine, the dose will be slowly lowered over time to avoid any side effects. You may get drowsy or dizzy when you first start taking the medicine or change doses. Do not drive, use machinery, or do anything that may be dangerous until you know how the medicine affects you. Stand or sit up slowly. Do not take other medicines that contain acetaminophen with this medicine. Always read labels carefully. If you have questions, ask your doctor or pharmacist. If you take too much acetaminophen get medical help right away. Too much acetaminophen can be very dangerous and cause liver damage. Even if you do not have symptoms, it is important to get help right away. You have been given the following additional information: Headache, Unspecified Neck Pain, No Trauma Butalbital, Acetaminophen, Caffeine Oral tablet (Electronically signed by Cynthia Can A.R.N.P. 10/08/2016 14:00)
--- NOTE | 2016-10-08 14:01 | ED MED RECONCILIATION SUMMARY ---
Patient: HUDSON LYNCH Medication Reconciliation Report [facility] VisitID: [id number] [address] [place] [address] 51y, F Registration Date/Time: 10/06/2016 Weight: 58.9 kg Height/Length: 66 in. BMI: 21.0 ALLERGIES: Amoxicillin, Penicillins The patient's Home Medications are listed below: THE FOLLOWING MEDICATIONS NEED TO BE RECONCILED: Gabapentin Oral 300 mg, 3x a day Ibuprofen Oral 800 mg, 3x a day The source(s) of the original Home Medication information: patient The following Medications were given to the patient in the Emergency Department: Toradol [IM] IM 60 mg, administered: 10/06/2016 10:42:00 PM Benadryl [IM] IM 50 mg, administered: 10/06/2016 10:44:00 PM Reglan IM 10mg, administered: 10/06/2016 10:43:00 PM The following Medications were prescribed to the patient: Fioricet: Take 1-2 orally every 4 hours as needed for headache. Dispense twenty (20). No refills. Substitution is permissible. -- Cynthia Can A.R.N.P.
--- NOTE | 2016-10-08 14:01 | ED MAR SUMMARY ---
..... Medication Administration Record [facility] [address] [address] Patient: HUDSON LYNCH Visit ID: [id number] 51y, F Weight: 58.9 kg Height/Length: 66 in BMI: 21 ALLERGIES: Amoxicillin, Penicillins Given 22:42 10/06/2016 Siobhan Kenyon R.N. Medication Administered: TORADOL [IM] (KETOROLAC TROMETHAMINE), Dose: 60 mg IM. Medication Ordered: Toradol IM 60 mg (NOW). Given 22:43 10/06/2016 Siobhan Kenyon RRuth AnnN. Medication Administered: Reglan *, Dose: 10mg * IM. Medication Ordered: - (Reglan 10mg im stat). Given 22:44 10/06/2016 Siobhan Kenyon RRuth AnnN. Medication Administered: BENADRYL [IM] (DIPHENHYDRAMINE HCL), Dose: 50 mg IM. Medication Ordered: Benadryl IM 50 mg (NOW).
== END 2016-10-06 22:50 | disposition home or self-care (01) ==
LOC: ED SRH 21:26
DX: G43.011 Migraine without aura, intractable, with status migrainosus (principal); M54.2 Cervicalgia; G89.29 Other chronic pain; F17.210 Nicotine dependence, cigarettes, uncomplicated